=== PATIENT | male | born 1995 | race Hispanic/Latino ===

== ENCOUNTER 2017-09-13 04:19 | Emergency (ER) | payer MEDICAID, SELFPAY ==
[2017-09-13] MEDS ORDERED: Ibuprofen 800 MG TAB ONE (04:48)
[2017-09-13] MEDS ORDERED: HYDROcodone/Acetaminophen 5/325 mg Tablet ONE (04:48)
[2017-09-13 04:55] LABS: #Basophils 0.1 thou/uL (0.0-0.2); #Eosinphils 0.3 thou/uL (0.0-0.7); #Lymphocytes 1.9 thou/uL (1.20-3.40); #Monocytes 1.9 thou/uL (0.11-0.59); #Neutrophils 12.4 thou/uL (1.40-6.50); %Basophils 0.3 % (0.0-1.0); %Eosinophils 1.8 % (0.0-10.0); %Lymphocytes 11.6 % (28.0-48.0); %Monocytes 11.3 % (0.0-4.0); Hematocrit 43.9 % (42.0-52.0); Mean Platelet Volume 8.9 fL (7.4-10.4); Red Blood Cell (RBC) Count 4.53 mill/uL (4.00-5.20); White Blood Cell (WBC) Count 16.5 thou/uL (4.8-10.8)
[2017-09-13 05:09] LABS: ALT (SGPT) 12 U/L (8-55); AST (SGOT) 18 U/L (5-34); Alkaline Phosphatase 66 U/L (Less than 750); Anion Gap 12 mmol/L (10-20); BUN (Urea Nitrogen) 13 mg/dL (8.9-20.6); Bilirubin, Total 0.5 mg/dL (0.2-1.2); CK (CPK) 221 U/L (30-200); Calc. Creatinine Clearance 0 mL/min (70-130); Calcium 9.1 mg/dL (7.8-10.44); Carbon Dioxide 21 mmol/L (22-29); Chloride 107 mmol/L (98-107); Estimated GFR-MDRD Greater than 90; Globulin 3.3 g/dL (2.4-3.5); Protein, Total 7.4 g/dL (6.0-8.3)
[2017-09-13] MEDS ORDERED: Bacitracin Zinc 1 Packet ONE (05:16)
== END 2017-09-13 05:23 | disposition home or self-care (01) ==
LOC: ERS 04:19
DX: L02.415 Cutaneous abscess of right lower limb (principal)
CPT/HCPCS: 10060; 36415; 80053; 82550; 85025

== ENCOUNTER 2017-09-14 12:37 | Emergency (ER) | payer SELFPAY ==
[2017-09-14] MEDS ORDERED: Lidocaine 1% PF 5 ML VIAL ONE ×2 (13:11→13:19)
[2017-09-14] MEDS ORDERED: HYDROcodone/Acetaminophen 10/325 mg Tablet ONE (13:11)
[2017-09-14] MEDS ORDERED: Adacel (T-DAP) 0.5 ML VIAL ONE (13:36)
== END 2017-09-14 13:51 | disposition home or self-care (01) ==
LOC: ERS 12:37
DX: L02.415 Cutaneous abscess of right lower limb (principal); F17.210 Nicotine dependence, cigarettes, uncomplicated
CPT/HCPCS: 10060; 90471; 90715; 99406; J2001

== ENCOUNTER 2017-09-16 11:13 | Emergency (ER) | payer SELFPAY ==
[2017-09-16] MEDS ORDERED: HYDROcodone/Acetaminophen 5/325 mg Tablet ONE (13:34)
== END 2017-09-16 14:32 | disposition home or self-care (01) ==
LOC: ERS 11:13
DX: L03.115 Cellulitis of right lower limb (principal); L02.415 Cutaneous abscess of right lower limb; F17.210 Nicotine dependence, cigarettes, uncomplicated
CPT/HCPCS: 87070; 87077; 87186; 87205; 99283

== ENCOUNTER 2018-01-17 01:49 | Emergency (ER) | payer SELFPAY ==
[2018-01-17] MEDS ORDERED: Cyclobenzaprine 10 MG TAB ONE (02:10)
[2018-01-17] MEDS ORDERED: Ketorolac Tromethamine 30 MG/ML VIAL ONE (02:10)
--- NOTE | 2018-01-17 08:17 | RAD ---
LEFT RIBS 3 VIEWS ONE VIEW CHEST: HISTORY: Posttraumatic pain. COMPARISON: None. FINDINGS: ONE VIEW CHEST: Normal cardiac silhouette. The pulmonary vessels and hilum are normal. Costophrenic angles are bouchra r. No consolidation or mass. No pneumothorax. LEFT RIBS 3 VIEWS: No fracture. No cortical irregularity. No periosteal reaction. IMPRESSION: 1. Unremarkable left rib series. 2. No acute cardiopulmonary process. POS: [facility]
== END 2018-01-17 02:35 | disposition home or self-care (01) ==
LOC: ERS 01:49
DX: S20.212A Contusion of left front wall of thorax, initial encounter (principal); F17.210 Nicotine dependence, cigarettes, uncomplicated; W01.198A Fall on same level from slipping, tripping and stumbling with subsequent striking against other object, initial encounter
CPT/HCPCS: 96372; 99406; J1885

== ENCOUNTER 2018-06-07 14:54 | Emergency (ER) | payer SELFPAY ==
[2018-06-07] MEDS ORDERED: Ondansetron HCl/PF 4 MG/2 ML Vial ONE (15:32)
[2018-06-07 15:39] LABS: #Basophils 0.1 thou/uL (0.0-0.2); #Eosinphils 0.1 thou/uL (0.0-0.7); #Lymphocytes 2.9 thou/uL (1.20-3.40); #Monocytes 0.8 thou/uL (0.11-0.59); %Basophils 0.8 % (0.0-1.0); %Eosinophils 1.2 % (0.0-10.0); %Monocytes 8.1 % (0.0-10.0); %Neutrophils 60.8 % (42.0-75.0); Hemoglobin 15.4 g/dL (14.0-18.0); Mean Corpuscular HGB CONC 36.1 g/dL (32.0-36.0); Mean Corpuscular Volume 94.1 fL (78.0-98.0); Mean Platelet Volume 8.9 fL (7.4-10.4); Platelet Count 205 thou/uL (130-400); RBC Distribution Width 12.3 % (11.5-14.5); Red Blood Cell (RBC) Count 4.53 mill/uL (4.70-6.10); White Blood Cell (WBC) Count 9.9 thou/uL (4.8-10.8)
[2018-06-07] MEDS ORDERED: Ketorolac Tromethamine 30 MG/ML VIAL ONE (15:43)
[2018-06-07 16:03] LABS: ALT (SGPT) 15 U/L (8-55); AST (SGOT) 20 U/L (5-34); Acetaminophen Less than 6.0 mcg/mL (10.0-30.0); Albumin 4.8 g/dL (3.5-5.0); Alcohol Less than 10 mg/dL (Less than 10); Alkaline Phosphatase 78 U/L (40-150); Anion Gap 14 mmol/L (10-20); BUN (Urea Nitrogen) 10 mg/dL (8.9-20.6); Bilirubin, Total 0.7 mg/dL (0.2-1.2); Calc. Creatinine Clearance 0 mL/min (70-130); Calcium 9.6 mg/dL (7.8-10.44); Carbon Dioxide 26 mmol/L (22-29); Chloride 105 mmol/L (98-107); Estimated GFR-MDRD Greater than 90; Globulin 3.1 g/dL (2.4-3.5); Glucose 132 mg/dL (70-105); Potassium 3.5 mmol/L (3.5-5.1); Protein, Total 7.9 g/dL (6.0-8.3); Salicylate Less than 8.0 mg/dL (15.0-30.0); Sodium 141 mmol/L (136-145)
--- NOTE | 2018-06-07 16:28 | RAD ---
ACUTE ABDOMINAL SERIES WITH FRONTAL VIEW CHEST AND TWO VIEW ABDOMEN: Indication: Pain. FINDINGS: The lungs are clear. There is no free air beneath the hemidiaphragms. There is callus formation at th e posterolateral left 7th rib. Bowel gas pattern is nonobstructed. IMPRESSION: 1. No free air or focal consolidation. 2. Subacute left 7th rib fracture. Correlate clinically. POS: [facility]
[2018-06-07 16:34] LABS: Blood, Urine Large (Negative); Glucose, Urine (Dipstick) Negative (Negative); Leukocyte Negative (Negative); Protein, Urine (Dipstick) 100 mg/dL (Neg-Trace)
[2018-06-07 16:36] LABS: Clarity Cloudy (Clear)
[2018-06-07 16:41] LABS: Nitrite Unable to Interpret (Negative); Specific Gravity, Urine 1.026 (1.002-1.036)
[2018-06-07 16:43] LABS: Bilirubin Unable to Interpret (Negative); Urobilinogen 0.2 mg/dL (0.2-1.0)
[2018-06-07 16:44] LABS: Bacteria/HPF None Seen HPF (None Seen); RBC/HPF GREATER THAN 50-TNTC HPF (0-3); Squamous Epithelial 0-3 HPF (0-3)
[2018-06-07 16:45] LABS: Crystals/HPF 2+ CA OXALATE HPF (Negative); Hyaline Casts/LPF NONE SEEN LPF (0-3 Hyaline); Medtox Reader # READER 4
[2018-06-07 16:46] LABS: Amphetamine Not Detected (NotDetected); Barbiturates Screen Not Detected (NotDetected); Benzodiazepine Screen Not Detected (NotDetected); Cocaine Metabolite Screen Not Detected (NotDetected); Medtox Control Line Valid? VALID (VALID); Methadone Not Detected (NotDetected); Methamphetamine Not Detected (NotDetected); Opiate Screen Not Detected (NotDetected); Oxycodone Screen Not Detected (NotDetected); Phencyclidine (PCP) Not Detected (NotDetected); THC/Cannabinoid Screen Not Detected (NotDetected); Tricyclic Screen Not Detected (NotDetected)
--- NOTE | 2018-06-07 18:02 | CT ---
CT ABDOMEN AND PELVIS NONCONTRAST: 06/07/18 HISTORY: Dysuria. Hematuria. FINDINGS: No comparison. Each renal collecting system, ureter, and the urinary bladder are decompressed without stone evident. Lack of contrast limits evaluation for other abnormalities. Subtle stranding is apparent along the po sterior aspect of each paracolic gutter. Cause is not apparent. IMPRESSION: No CT evidence of urinary tract obstruction or calcification. POS: [facility]
[2018-06-07] MEDS ORDERED: diphenhydrAMINE 50 MG/ML VIAL ONE (18:41)
[2018-06-07] MEDS ORDERED: Metoclopramide HCl 10 MG/2 ML VIAL ONE (18:41)
[2018-06-07] MEDS ORDERED: Metoclopramide 10 MG/10 ML UDCUP ONE (18:41)
--- NOTE | 2018-06-08 13:46 | EKG ---
Test Reason : DRUG USE Blood Pressure : / mmHG Vent. Rate : 065 BPM Atrial Rate : 065 BPM P-R Int : 150 ms QRS Dur : 088 ms QT Int : 420 ms P-R-T Axes : 010 069 067 degrees QTc Int : 436 ms Normal sinus rhythm Normal ECG Confirmed by KEILA WU, JAVAD ([id number]), medical editor SANDHYA PALACIOS ([id number] on 06/08/2018 1:45:47 PM Referred By: Confirmed By:JAVAD PEDRAZA MD
== END 2018-06-07 19:46 | disposition home or self-care (01) ==
LOC: ERS 14:54
DX: R10.9 Unspecified abdominal pain (principal); F17.210 Nicotine dependence, cigarettes, uncomplicated
CPT/HCPCS: 74022; 74176; 80053; 80306; 80307; 81003; 81015; 82550; 85025; 93005; 96361; 96374; 96375; J1200; J1885; J2405; J2765

== ENCOUNTER 2018-06-09 14:47 | Emergency (ER) | payer SELFPAY ==
[2018-06-09 15:18] LABS: Bilirubin Small (Negative); Blood, Urine Large (Negative); Clarity CLOUDY (Clear); Glucose, Urine (Dipstick) Negative (Negative); Leukocyte Trace (Negative); Nitrite Negative (Negative); Protein, Urine (Dipstick) 30 mg/dL (Neg-Trace); Specific Gravity, Urine 1.031 (1.002-1.036); pH, Urine 5.5 (5.0-9.0)
[2018-06-09 15:20] LABS: Bacteria/HPF None Seen HPF (None Seen); Hyaline Casts/LPF 7-10 HYALINE CAST LPF (0-3 Hyaline); Pathc Cast-AUWi Flag 1.01 (0-2.49); RBC/HPF GREATER THAN 50-TNTC HPF (0-3); Squamous Epithelial 0-3 HPF (0-3)
[2018-06-09 15:24] LABS: Amphetamine Not Detected (NotDetected); Barbiturates Screen Not Detected (NotDetected); Benzodiazepine Screen Not Detected (NotDetected); Cocaine Metabolite Screen Detected (NotDetected); Medtox Control Line Valid? VALID (VALID); Medtox Reader # READER 1; Methadone Not Detected (NotDetected); Methamphetamine Not Detected (NotDetected); Opiate Screen Not Detected (NotDetected); Oxycodone Screen Not Detected (NotDetected); Phencyclidine (PCP) Not Detected (NotDetected); THC/Cannabinoid Screen Not Detected (NotDetected); Tricyclic Screen Not Detected (NotDetected)
[2018-06-09 15:42] LABS: #Lymphocytes 1.2 thou/uL (1.20-3.40); #Monocytes 0.7 thou/uL (0.11-0.59); #Neutrophils 12.3 thou/uL (1.40-6.50); %Basophils 0.2 % (0.0-1.0); %Eosinophils 0.1 % (0.0-10.0); %Lymphocytes 8.1 % (21.0-51.0); %Monocytes 5.2 % (0.0-10.0); %Neutrophils 86.4 % (42.0-75.0); Hemoglobin 15.2 g/dL (14.0-18.0); Mean Corpuscular HGB CONC 34.4 g/dL (32.0-36.0); Mean Corpuscular Hemoglobin 32.7 pg (27.0-31.0); Mean Corpuscular Volume 94.9 fL (78.0-98.0); Mean Platelet Volume 8.8 fL (7.4-10.4); Platelet Count 207 thou/uL (130-400); RBC Distribution Width 12.3 % (11.5-14.5); Red Blood Cell (RBC) Count 4.64 mill/uL (4.70-6.10); White Blood Cell (WBC) Count 14.3 thou/uL (4.8-10.8)
[2018-06-09 16:05] LABS: ALT (SGPT) 17 U/L (8-55); AST (SGOT) 23 U/L (5-34); Albumin 5.1 g/dL (3.5-5.0); Alkaline Phosphatase 81 U/L (40-150); Anion Gap 11 mmol/L (10-20); BUN (Urea Nitrogen) 9 mg/dL (8.9-20.6); Bilirubin, Total 0.6 mg/dL (0.2-1.2); Calc. Creatinine Clearance 0 mL/min (70-130); Calcium 10.1 mg/dL (7.8-10.44); Carbon Dioxide 28 mmol/L (22-29); Chloride 106 mmol/L (98-107); Estimated GFR-MDRD 89; Globulin 3.3 g/dL (2.4-3.5); Glucose 124 mg/dL (70-105); Lipase 7 U/L (8-78); Potassium 3.9 mmol/L (3.5-5.1); Protein, Total 8.4 g/dL (6.0-8.3); Sodium 141 mmol/L (136-145)
[2018-06-09] MEDS ORDERED: Acetaminophen 325 MG TAB ONE (16:45)
[2018-06-09] MEDS ORDERED: Cyclobenzaprine 10 MG TAB ONE (16:45)
== END 2018-06-09 18:07 | disposition home or self-care (01) ==
LOC: ERS 14:47
DX: R10.31 Right lower quadrant pain (principal); R10.11 Right upper quadrant pain; F17.210 Nicotine dependence, cigarettes, uncomplicated
CPT/HCPCS: 36415; 80053; 80306; 81003; 81015; 83690; 85025; 96360

== ENCOUNTER 2018-07-29 10:15 | Emergency (ER) | payer SELFPAY ==
[2018-07-29] MEDS ORDERED: Lidocaine 1% (PF) 30 ML VIAL ONE (13:05)
[2018-07-29] MEDS ORDERED: Ondansetron ODT 4 MG TAB ONE (13:18)
[2018-07-29] MEDS ORDERED: HYDROcodone/Acetaminophen 10/325 mg Tablet ONE (13:18)
== END 2018-07-29 13:31 | disposition home or self-care (01) ==
LOC: ERS 10:15
DX: L03.116 Cellulitis of left lower limb (principal); L02.416 Cutaneous abscess of left lower limb; F17.210 Nicotine dependence, cigarettes, uncomplicated; Z71.6 Tobacco abuse counseling
CPT/HCPCS: 10160; 99406; J2001; Q0162

== ENCOUNTER 2018-08-22 08:25 | Emergency (ER) | payer SELFPAY ==
[2018-08-22] MEDS ORDERED: Lidocaine 1% (PF) 30 ML VIAL ONE (09:16)
[2018-08-22] MEDS ORDERED: HYDROcodone/Acetaminophen 10/325 mg Tablet ONE (09:50)
== END 2018-08-22 09:56 | disposition home or self-care (01) ==
LOC: ERS 08:25
DX: S91.111A Laceration without foreign body of right great toe without damage to nail, initial encounter (principal); F17.210 Nicotine dependence, cigarettes, uncomplicated; W26.0XXA Contact with knife, initial encounter
CPT/HCPCS: 12001; J2001